=== PATIENT | male | born 1980 | race Caucasian/White ===

== ENCOUNTER 2024-01-27 13:57 | Inpatient (IN) | payer MEDICAID ==
[~2024-01-27] VITALS: Ht 188 cm; Wt 82.7 kg
[2024-01-27 15:09] LABS: BASOPHILS % (AUTO) 0.5 % (0.0-2.0); EOSINOPHILS % (AUTO) 0.8 % (1.0-6.0); HEMATOCRIT 41.8 % (41-53); HEMOGLOBIN 14.2 g/dL (13.5-17.5); LYMPHOCYTES # (AUTO) 0.6 K/uL (1.0-4.8); LYMPHOCYTES % (AUTO) 14.1 % (22.0-44.0); MEAN CORPUSCULAR HEMOGLOBIN 30.4 pg (26.0-34.0); MEAN CORPUSCULAR VOLUME 89 fL (80-100); MONOCYTES # (AUTO) 0.6 K/uL (0.1-1.0); MONOCYTES % (AUTO) 13.8 % (2.0-9.0); NEUTROPHILS # (AUTO) 3.2 K/uL (1.8-7.7); NEUTROPHILS % (AUTO) 70.8 % (40.0-70.0); PLATELET COUNT (AUTO) 225 K/uL (150-450); RED BLOOD CELL COUNT(AUTO) 4.68 MIL/uL (4.50-5.90); RED CELL DISTRIBUTION WIDTH 13.5 % (11.5-14.5); WHITE BLOOD COUNT (AUTO) 4.5 K/uL (4.5-11.0)
[2024-01-27 15:18] LABS: ANION GAP 6 mmol/L (8-16); CALCIUM, TOTAL 9.2 mg/dL (8.8-10.5); CARBON DIOXIDE 29 mmol/L (22-29); CHLORIDE 100 mmol/L (98-107); CREATININE 1.22 mg/dL (0.60-1.30); GLOMERULAR FILTR. RATE CALC > 60 mL/min (>60); GLUCOSE,RANDOM 98 mg/dL (70-110); POTASSIUM 4.3 mmol/L (3.5-5.1); SODIUM SERUM 135 mmol/L (136-145); UREA NITROGEN, BLOOD 14 mg/dL (7-18)
[2024-01-27 15:27] LABS: TROPONIN I-HIGH SENSITIVITY 4 ng/L (<76)
[2024-01-27] MEDS: CloNIDine HCL 0.1 MG TABLET PO ONE (16:18)
[2024-01-27 17:22] LABS: COVID AG,FIA SOURCE NASAL SWAB
[2024-01-27] MEDS ORDERED: QUEtiapine FUMARATE 100 MG TABLET PO PRN (17:45)
[2024-01-27] MEDS ORDERED: LORazepam 2 MG TABLET PO PRN (17:45)
[2024-01-27 17:54] LABS: SARS-COV2 (COVID) ANTIGEN,FIA Negative (Negative)
[2024-01-27] MEDS: ZOLPIDEM TARTRATE 10 MG TABLET PO PRN (21:44)
[2024-01-27 22:14] VITALS: BP 135/82; PULSE 82; RESP 18; TEMP 97.6; O2SAT 100
[2024-01-28] MEDS: PNEUMOCOCCAL VACCINE POLYVALENT 0.5 ML SYRINGE [PPSV23] IM. ONE (03:05)
[2024-01-28] MEDS ORDERED: ACETAMINOPHEN 325 MG TABLET PO PRN (06:15)
[2024-01-28] MEDS ORDERED: ALBUTEROL SULFATE HFA 90 MCG/PUFF 8 GM INHALER IH PRN (06:15)
[2024-01-28] MEDS ORDERED: MAG HYDROX/ALUMINUM HYD/SIMETH ES 30 ML SUSPENSION UDCUP PO PRN (06:15)
[2024-01-28] MEDS ORDERED: IBUPROFEN 400 MG TABLET PO PRN (06:15)
[2024-01-28] MEDS ORDERED: GuaiFENesin/D-METHORPHAN [SUGAR-FREE] 200-20MG/10 ML SYRUP UDCUP PO PRN (06:15)
[2024-01-28] MEDS ORDERED: ONDANSETRON HCL 4 MG TABLET PO PRN (06:15)
[2024-01-28] MEDS ORDERED: LOPERAMIDE HCL 2 MG CAPSULE PO PRN (06:15)
[2024-01-28] MEDS ORDERED: DOCUSATE SODIUM 100 MG CAPSULE PO PRN (06:15)
[2024-01-28] MEDS ORDERED: PETROLATUM,WHITE 28 GM JELLY TP PRN (06:15)
[2024-01-28] MEDS ORDERED: CloNIDine HCL 0.1 MG TABLET PO PRN (06:15)
[2024-01-28 08:55] VITALS: BP 137/82; PULSE 76; RESP 18; TEMP 98; O2SAT 98
[2024-01-28] MEDS ORDERED: ARIP5TAB37 PO (09:05)
[2024-01-28] MEDS: ARIPiprazole 5 MG TABLET PO SCH (09:40)
[2024-01-28 21:39] VITALS: BP 141/78; PULSE 78; RESP 18; TEMP 97.6; O2SAT 98
[2024-01-29 09:15] VITALS: BP 136/75; PULSE 74; RESP 16; TEMP 98.5; O2SAT 98
[2024-01-29 17:44] VITALS: BP 132/79; PULSE 77; RESP 17; TEMP 97; O2SAT 97
[2024-01-29 22:23] VITALS: BP 132/90; PULSE 86; RESP 17; TEMP 99.9; O2SAT 98
[2024-01-30 09:34] VITALS: BP 120/77; PULSE 85; RESP 18; TEMP 98; O2SAT 98
[2024-01-31] MEDS ORDERED: ARIP5TAB8 PO (05:46)
== END 2024-01-30 10:00 | disposition home or self-care (01) | DRG 750 ==
LOC: EMS 13:57 → B2S 18:02
PROVIDERS: ADMIT Psychiatry & Neurology Psychiatry; ATTEND Psychiatry & Neurology Psychiatry
PROC: GZHZZZZ Group Psychotherapy (ICD-10-PCS; principal; 2024-01-28)
DX: F25.9 Schizoaffective disorder, unspecified (principal); E87.1 Hypo-osmolality and hyponatremia; R45.851 Suicidal ideations; F41.9 Anxiety disorder, unspecified; G47.00 Insomnia, unspecified; F90.9 Attention-deficit hyperactivity disorder, unspecified type; F29 Unspecified psychosis not due to a substance or known physiological condition; I10 Essential (primary) hypertension; F42.9 Obsessive-compulsive disorder, unspecified; Z20.822 Contact with and (suspected) exposure to COVID-19; Z79.899 Other long term (current) drug therapy; Z91.199 Patient's noncompliance with other medical treatment and regimen due to unspecified reason
CPT/HCPCS: 80048; 84484; 85025; 93005